=== PATIENT | female | born 1985 | race Caucasian/White ===

== ENCOUNTER 2017-10-07 17:34 | Emergency (ER) | payer OTHER ==
[~2017-10-07] VITALS: Ht 167.6 cm; Wt 68.2 kg
[~2017-10-07 17:34] MED LIST: CEFAZOLIN 1,000 MG ONE; DEXAMETHASONE 4 MG/ML, 1ML ONE; KETAMINE 10 MG/ML, 20ML ONE; MIDAZOLAM 1 MG/ML, 2ML ONE; PROPOFOL 10 MG/ML, 50ML ONE
[2017-10-07] MEDS ORDERED: ONDANSETRON ODT 4 MG ONE (18:15)
[2017-10-07] MEDS ORDERED: MORPHINE SULFATE 4 MG/ML, 1ML ONE (18:15)
[2017-10-07] MEDS ORDERED: MORPHINE SULFATE 4 MG/ML, 1ML IVPush PRN (18:30)
[2017-10-07] MEDS ORDERED: SODIUM CHLORIDE FLUSH 10ML SYR IVF ONE (18:30)
[2017-10-07] MEDS ORDERED: ONDANSETRON ODT 4 MG PO ONE (18:30)
[2017-10-07] MEDS ORDERED: PROPOFOL 10 MG/ML, 20ML IVPush ONE (19:00)
[2017-10-07] MEDS ORDERED: PROPOFOL 10 MG/ML, 20ML ONE ×2 (19:18→19:28)
[2017-10-07] MEDS ORDERED: HYDROcodone/APAP 5/325 TABLET PO ONE (20:30)
[2017-10-07] MEDS ORDERED: HYDROcodone/APAP 5/325 TABLET ONE (20:47)
[2017-10-07 21:02] VITALS: BP 115/78
[2017-10-12] MEDS ORDERED: ONDANSETRON 2MG/ML, 2ML ONE (00:57)
[2017-10-12] MEDS ORDERED: methylPREDNISolone SOD SUCC 125 MG/2 ML ONE (01:33)
== END 2017-10-07 21:17 | disposition home or self-care (01) ==
LOC: ED 18:30
DX: S52.572A Other intraarticular fracture of lower end of left radius, initial encounter for closed fracture (principal); S52.612A Displaced fracture of left ulna styloid process, initial encounter for closed fracture; W18.39XA Other fall on same level, initial encounter; Y93.51 Activity, roller skating (inline) and skateboarding; Y92.488 Other paved roadways as the place of occurrence of the external cause; Y99.8 Other external cause status
CPT/HCPCS: 25605; 73100; 73110; 73200; 96374; 99152; 99153; 99285; J0690; J1100; J2250; J2704; Q0162; C1713

== ENCOUNTER 2017-10-30 10:12 | Day surgery (SDC) | payer OTHER ==
[~2017-10-30] VITALS: Ht 167.6 cm; Wt 67.9 kg
[2017-10-30 11:25] LABS: BASOPHILS # (AUTO) 0.07 x10^3/uL (0-0.1); BASOPHILS % (AUTO) 1 % (0-1); EOSINOPHILS # (AUTO) 0.01 x10^3/uL (0-0.4); EOSINOPHILS % (AUTO) 0 % (1-7); LYMPHOCYTES # (AUTO) 1.75 x10^3/uL (1-3.4); LYMPHOCYTES % (AUTO) 22 % (22-44); MD NO; MEAN CORPUSCULAR HEMOGLOBIN 34.1 pg (27.0-34.8); MEAN CORPUSCULAR VOLUME 97.5 fL (80-100); MEAN PLATELET VOLUME 10.1 fL (7.4-10.4); MONOCYTES # (AUTO) 0.32 x10^3/uL (0.2-0.8); MONOCYTES % (AUTO) 4 % (2-9); NEUTROPHILS # (AUTO) 5.88 x10^3/uL (1.8-6.8); NEUTROPHILS % (AUTO) 73 % (42-75); PLATELET COUNT 201 x10^3/uL (130-400); RED BLOOD COUNT 3.82 x10^6/uL (3.82-5.3); RED CELL DISTRIBUTION WIDTH 12.7 % (9.6-15.2)
[2017-10-30] MEDS ORDERED: ONDANSETRON 2MG/ML, 2ML IVPush ONE (11:30)
[2017-10-30] MEDS ORDERED: SODIUM CHLORIDE FLUSH 10ML SYR IVF ONE (11:30)
[2017-10-30 11:35] LABS: ALANINE AMINOTRANSFERASE 19 U/L (12-78); ALBUMIN 3.5 g/dL (3.4-5.0); ANION GAP 9 mmol/L (5-15); CALCIUM 8.4 mg/dL (8.5-10.1); CHLORIDE 109 mmol/L (98-107)
[2017-10-30] MEDS ORDERED: ONDANSETRON 2MG/ML, 2ML ONE ×2 (11:43→14:54)
[2017-10-30] MEDS ORDERED: MORPHINE SULFATE 4 MG/ML, 1ML ONE ×2 (11:44→12:05)
[2017-10-30] MEDS: MORPHINE SULFATE 4 MG/ML, 1ML IVPush PRN ×2 (11:45→12:08)
[2017-10-30 11:53] LABS: ALKALINE PHOSPHATASE 36 U/L (45-117); BILIRUBIN,TOTAL 0.5 mg/dL (0.2-1.0); TOTAL PROTEIN 6.9 g/dL (6.4-8.2)
[2017-10-30 12:07] LABS: MICROSCOPIC NOT IND
[2017-10-30] MEDS ORDERED: CALCIUM PO (12:12)
[2017-10-30] MEDS ORDERED: VITA1TAB19 PO (12:12)
[2017-10-30] MEDS ORDERED: MULT-6 PO (12:12)
[2017-10-30 12:20] LABS: CULTURE INDICATED? NO
[2017-10-30] MEDS ORDERED: SODIUM CHLORIDE 0.9% 1,000 ML IV ONE (14:02)
[2017-10-30] MEDS ORDERED: SODIUM CHLORIDE FLUSH 10ML SYR IVF PRN (14:30)
[2017-10-30] MEDS ORDERED: MIDAZOLAM 1 MG/ML, 2ML ONE (14:45)
[2017-10-30] MEDS ORDERED: FENTANYL PF 250 MCG/5ML ONE (14:45)
[2017-10-30] MEDS ORDERED: KETAMINE 10 MG/ML, 20ML ONE (14:54)
[2017-10-30] MEDS ORDERED: ROCURONIUM 10 MG/ML,10ML ONE (14:54)
[2017-10-30] MEDS ORDERED: KETOROLAC 30 MG/1 ML ONE (14:54)
[2017-10-30] MEDS ORDERED: CEFAZOLIN 1,000 MG ONE (14:54)
[2017-10-30] MEDS ORDERED: NEOSTIGMINE 1 MG/ML, 10ML ONE (14:54)
[2017-10-30] MEDS ORDERED: GLYCOPYRROLATE 0.2MG/1ML, 5ML ONE (14:54)
[2017-10-30] MEDS ORDERED: DEXAMETHASONE 4 MG/ML, 1ML ONE (14:54)
[2017-10-30] MEDS ORDERED: SUCCINYLCHOLINE 20 MG/ML, 10ML ONE (14:54)
[2017-10-30] MEDS ORDERED: PROPOFOL 10 MG/ML, 20ML ONE (14:54)
[2017-10-30] MEDS ORDERED: BUPIVACAINE/PF-EPI 0.25% 1:200K INFIL ONE (15:43)
[2017-10-30] MEDS ORDERED: OXYcodone 5 MG/5 ML ORAL.SOL UDC ONE (16:20)
[2017-10-30] MEDS: MEPERIDINE/PF 25MG/0.5ML IVPush PRN ×2 (16:20→16:45)
[2017-10-30] MEDS ORDERED: MEPERIDINE/PF 50 MG/ML ONE (16:20)
[2017-10-30] MEDS ORDERED: FENTANYL PF 100 MCG/2ML ONE (16:20)
[2017-10-30] MEDS ORDERED: PROMETHAZINE 25 MG/ML, 1ML ONE (16:26)
[2017-10-30] MEDS: PROMETHAZINE 25 MG/ML, 1ML IV PRN ×2 (16:29→16:45)
[2017-10-30] MEDS ORDERED: BUPIVACAINE/PF-EPI 0.25% 1:200K ONE (16:29)
[2017-10-30] MEDS ORDERED: ACETAMINOPHEN 325 MG TABLET PO PRN (16:30)
[2017-10-30] MEDS ORDERED: OXYcodone 5 MG/5 ML ORAL.SOL UDC PO PRN ×2 (16:30→18:30)
[2017-10-30] MEDS ORDERED: MORPHINE SULFATE 4 MG/ML, 1ML IVPush PRN ×2 (16:30→18:30)
[2017-10-30] MEDS ORDERED: ALBUTEROL SULFATE 2.5 MG/3 ML NPPB PRN (16:30)
[2017-10-30] MEDS: FENTANYL PF 100 MCG/2ML IV PRN ×2 (16:52→17:06)
[2017-10-30] MEDS ORDERED: DIPHENHYDRAMINE 50 MG/ML, 1ML IVPush PRN (18:30)
[2017-10-30] MEDS ORDERED: ONDANSETRON 2MG/ML, 2ML IVPush PRN (18:30)
[2017-10-30] MEDS ORDERED: KETOROLAC 30 MG/1 ML IV PRN (18:30)
[2017-10-30] MEDS ORDERED: D5%-LACTATED RINGERS 1,000 ML IV SCH (18:30)
[2017-10-30] MEDS ORDERED: OXYcodone/APAP 5/325MG TABLET PO PRN (18:30)
[2017-10-30] MEDS ORDERED: MEPERIDINE/PF 50 MG/ML IV PRN (18:30)
[2017-10-30 18:52] VITALS: BP 100/67
[2017-10-30] MEDS ORDERED: OXYC-302 PO (19:27)
[2017-10-30] MEDS ORDERED: IBUP-1222 PO (19:28)
[2017-10-30] MEDS ORDERED: DOCU-131 PO (19:28)
[2017-10-30] MEDS ORDERED: IBUPROFEN 600 MG TABLET PO SCH (21:00)
== END 2017-10-30 20:37 ==
LOC: ED 11:05 → EDIP 14:02 → UNDOADMIN 14:02 → OR 16:05 → 4NOR 18:00 → EDIP 18:00 → UNDODISIN 20:37 → OR 20:37
PROVIDERS: ATTEND Obstetrics & Gynecology
DX: O00.101 Right tubal pregnancy without intrauterine pregnancy (principal); T83.89XA Other specified complication of genitourinary prosthetic devices, implants and grafts, initial encounter; Y83.8 Other surgical procedures as the cause of abnormal reaction of the patient, or of later complication, without mention of misadventure at the time of the procedure; Y92.89 Other specified places as the place of occurrence of the external cause
CPT/HCPCS: 36415; 58301; 59151; 76700; 76830; 80053; 81003; 83690; 84702; 84703; 85025; 86850; 86900; 86901; 86923; 88302; 93005; J0330; J0690; J1100; J1885; J2175; J2250; J2405; J2550; J2704; J2710; J3010; J3490; J7030; J7121